=== PATIENT | female | born 1995 | race Caucasian/White ===

== ENCOUNTER 2016-06-28 16:40 | Emergency (ER) | payer BC, OTHER ==
[~2016-06-28] VITALS: Ht 162.6 cm; Wt 86.4 kg
[2016-06-28 16:43] VITALS: TEMP 97.9
[2016-06-28] MEDS ORDERED: SPRINTEC 35 MCG1 TAB PO (16:45)
[2016-06-28 18:04] LABS: PH 5 (5-8); URINE APPEARANCE Hazy; URINE BACTERIA None Seen /hpf; URINE BILIRUBIN Negative (NEGATIVE); URINE BLOOD 2+ (NEGATIVE); URINE COLOR Amber; URINE GLUCOSE Negative (NEGATIVE); URINE KETONE Negative (NEGATIVE); URINE RBC 20-50 /hpf; URINE UROBILINOGEN >=4.0 mg/dL (NEGATIVE)
[2016-06-28] MEDS ORDERED: MACROBID 1100 MG/CAP PO (18:21)
[2016-06-28] MEDS ORDERED: VALTREX1 GM PO (18:21)
[2016-06-28] MEDS ORDERED: DOXYCYCLINE 10100 MG PO (18:21)
[2016-06-28] MEDS ORDERED: FLAGYL500 MG PO (18:21)
[2016-06-28 19:11] VITALS: BP 124/79; PULSE 90
[2016-06-28 19:33] LABS: CHLAMYDIA/TRACH by PCR Female NOT DETECTED; NEISSERIA GON by PCR Female NOT DETECTED
== END 2016-06-28 19:13 | disposition home or self-care (01) ==
LOC: COL.ER 16:40
PROVIDERS: Emergency Medicine
DX: N73.9 Female pelvic inflammatory disease, unspecified (principal); A60.04 Herpesviral vulvovaginitis; N72 Inflammatory disease of cervix uteri; N30.90 Cystitis, unspecified without hematuria
CPT/HCPCS: J0696

== ENCOUNTER 2017-07-30 21:00 | Outpatient (CLI) | payer BC, OTHER ==
[~2017-07-30] VITALS: Ht 162.6 cm; Wt 83.2 kg
[~2017-07-30 21:00] MED LIST: DOXYCYCLINE 10100 MG PO; FLAGYL500 MG PO; MACROBID 1100 MG/CAP PO; SPRINTEC 35 MCG1 TAB PO; VALTREX1 GM PO
[2017-07-30 21:18] VITALS: BP 124/81; PULSE 100; TEMP 98.3
[2017-07-30] MEDS ORDERED: PRENATAL PO (21:22)
[2017-07-30 21:45] VITALS: BP 124/81; PULSE 100; TEMP 98.3
== END 2017-07-30 22:30 | disposition home or self-care (01) ==
LOC: LDRO 21:00
DX: O99.89 Other specified diseases and conditions complicating pregnancy, childbirth and the puerperium (principal); R10.9 Unspecified abdominal pain; Z3A.33 33 weeks gestation of pregnancy